=== PATIENT | female | born 1990 | race Caucasian/White ===

== ENCOUNTER 2017-10-08 02:01 | Emergency (ER) | payer OTHER ==
[~2017-10-08] VITALS: Ht 152.4 cm; Wt 67.1 kg
[2017-10-08] MEDS ORDERED: VISTARIL50 MG PO (06:53)
== END 2017-10-08 07:02 | disposition home or self-care (01) ==
LOC: ER 02:01
DX: R20.2 Paresthesia of skin (principal)

== ENCOUNTER 2018-03-26 15:11 | Emergency (ER) | payer OTHER ==
[~2018-03-26] VITALS: Ht 157.5 cm; Wt 61.2 kg
[~2018-03-26 15:11] MED LIST: VISTARIL50 MG PO
== END 2018-03-26 21:26 | disposition home or self-care (01) ==
LOC: ER 15:11
DX: R53.81 Other malaise (principal); G35 Multiple sclerosis; F06.4 Anxiety disorder due to known physiological condition

== ENCOUNTER 2020-04-08 22:21 | Emergency (ER) | payer OTHER ==
[~2020-04-08] VITALS: Ht 152.4 cm; Wt 65.3 kg
[2020-04-08] MEDS ORDERED: ESTAZOLAM2 MG PO (22:33)
[2020-04-09] MEDS ORDERED: MACROBID 100 M100 MG PO (02:05)
[2020-04-09] MEDS ORDERED: KETO10TA2 PO (02:05)
== END 2020-04-09 02:20 | disposition home or self-care (01) ==
LOC: ER 22:21
DX: N83.292 Other ovarian cyst, left side (principal); N93.8 Other specified abnormal uterine and vaginal bleeding

== ENCOUNTER 2020-05-27 17:27 | Emergency (ER) | payer OTHER ==
[~2020-05-27] VITALS: Ht 152.4 cm; Wt 69.4 kg
[~2020-05-27 17:27] MED LIST changes: +ESTAZOLAM2 MG PO; +KETO10TA2 PO; +MACROBID 100 M100 MG PO
== END 2020-05-27 20:27 | disposition home or self-care (01) ==
LOC: ER 17:27
DX: N39.0 Urinary tract infection, site not specified (principal)

== ENCOUNTER 2024-03-27 21:09 | Emergency (ER) | payer OTHER ==
[~2024-03-27] VITALS: Ht 154.9 cm; Wt 72.6 kg
[2024-03-27] MEDS ORDERED: ESTAZOLAM2 MG (21:12)
[2024-03-27] MEDS ORDERED: BUSPIRONE HCL7.5 MG (21:12)
[2024-03-27] MEDS ORDERED: METHYLPREDNISOLONE SOD SUCC 40 MG VIAL IV ONE (22:00)
[2024-03-27] MEDS ORDERED: ORPHENADRINE CITRATE 30 MG/ML AMPUL IV ONE (22:00)
[2024-03-27] MEDS ORDERED: DIPHENHYDRAMINE HCL 50 MG/ML VIAL 1ML IV ONE (22:00)
[2024-03-27] MEDS ORDERED: DIPHENHYDRAMINE HCL 50 MG/ML VIAL 1ML ONE (22:07)
[2024-03-27] MEDS ORDERED: ORPHENADRINE CITRATE 30 MG/ML AMPUL ONE ×2 (22:08→23:44)
[2024-03-27] MEDS ORDERED: METHYLPREDNISOLONE SOD SUCC 125 MG VIAL ONE (22:08)
[2024-03-27 22:22] LABS: PH,URINE 6.5 (5.0-8.0); URINE APPEARANCE Cloudy; URINE BILIRRUBIN Negative (NEGATIVE); URINE BLOOD Large; URINE COLOR Yellow; URINE GLUCOSE Negative (NEGATIVE); URINE KETONE Negative (NEGATIVE); URINE LEUKOCYTE Large; URINE NITRATE Negative; URINE PROTEIN 30 (NEGATIVE); URINE UROBILINOGEN 0.2 E.U./dl
[2024-03-27 22:23] LABS: URINE BACTERIA 2629.5 uL (0.0-1933); URINE RBC 534.8 uL (0.0-20.8); URINE WBC 197.2 uL (0.0-23.2)
[2024-03-27 22:32] LABS: URINE CAST 0.15 uL (0.0-1.40)
[2024-03-27] MEDS ORDERED: LevETIRAcetam 500 MG/5 ML VIAL IV SCH (23:28)
[2024-03-27] MEDS ORDERED: CEFTRIAXONE SODIUM 2,000 MG VIAL IV ONE (23:30)
[2024-03-27] MEDS ORDERED: CEFTRIAXONE SODIUM 2,000 MG VIAL ONE (23:34)
[2024-03-27 23:42] LABS: HEMATOCRIT 38.5 % (36.0-45.00); HEMOGLOBIN 12.7 g/dL (12.0-15.00); MEAN CELL VOLUME 76.5 fL (80.00-100.00); MEAN CORPUSCULAR HEMOGLOBIN 25.2 pg (27.00-32.0); PLATELET COUNT 379 K/uL (150-450); RED BLOOD COUNT 5.03 M/uL (4.00-6.00)
[2024-03-28 00:06] LABS: ALBUMIN 3.8 gm/dL (3.4-5.0); ALKALINE PHOSPHATASE 80 U/L (50-136); ALT/SGPT 25 U/L (12-78); ANION GAP 9 (10.0-20.0); AST/SGOT 22 U/L (15-37); BILIRUBIN TOTAL 0.28 mg/dL (0.3-1.2); BLOOD UREA NITROGEN 9 mg/dL (7-18); BUN CREA RATIO 13 (7.0-25.0); CALCIUM 9.3 mg/dL (8.5-10.1); CARBON DIOXIDE 31 mEq/L (21-32); CHLORIDE 108 mmol/L (98-107); CREATININE SERUM 0.71 mg/dL (0.55-1.02); GFR 93.68; GLOBULINA 3.6 G/DL (2.4-3.5); GLUCOSE FASTING 87 mg/dL (65-100); HCG QUANTITATIVE < 1 mUI/mL (1-3); OSMOLALITY SERUM 283 MOSM/KG (275-295); POTASSIUM 4.51 mEq/L (3.5-5.1); SODIUM 143 mmol/L (136-145); TOTAL PROTEIN 7.4 gm/dL (6.4-8.2)
[2024-03-28] MEDS ORDERED: METHYLPREDNISOLONE SOD SUCC 125 MG VIAL IV STA (00:53)
[2024-03-28] MEDS ORDERED: METHYLPREDNISOLONE SOD SUCC 125 MG VIAL ONE (01:58)
== END 2024-03-28 04:44 | disposition home or self-care (01) ==
LOC: ER 21:10
PROVIDERS: General Practice
DX: G35 Multiple sclerosis (principal); Z20.822 Contact with and (suspected) exposure to COVID-19; Z91.018 Allergy to other foods